=== PATIENT | female | born 1990 | race Caucasian/White ===

== ENCOUNTER 2018-01-23 08:34 | Emergency (ER) | payer BC ==
[~2018-01-23] VITALS: Ht 162.6 cm; Wt 63.2 kg
[~2018-01-23 08:34] MED LIST: MOBIC7.5 MG PO; MONONESSA1 EACH PO; NAPROXEN500 MG PO; PRENATAL VITAM1 EAC1 PO; SPRINTEC1 EACH PO; TORADOL10 MG PO; ZOFRAN4 MG PO
[2018-01-23 09:27] LABS: HEMATOCRIT 34.5 % (36.0-46.0); HEMOGLOBIN 12.3 G/DL (11.9-15.5); MCH 32.1 PG (29.0-34.0); MCHC 35.7 G/DL (30.0-36.0); MCV 90.1 FL (83-99); PLATELET COUNT 296 K/uL (156-360); RBC DIS.WIDTH-CV 11.9 % (11.8-14.6); RBC DIS.WIDTH-SD 39.1 % (39-53); RED BLOOD COUNT 3.83 M/uL (3.80-5.20); WHITE BLOOD COUNT 5.6 K/uL (4.1-10.2)
[2018-01-23 09:38] LABS: ALBUMIN 4.2 g/dL (3.2-4.8); CHLORIDE 105 mEq/L (99-109); POTASSIUM 4.3 mEq/L (3.7-5.4); SODIUM 136 mEq/L (136-147)
[2018-01-23 09:40] LABS: GLUCOSE 84 mg/dL (70-99); TOTAL PROTEIN 7.1 g/dL (6.4-8.3)
[2018-01-23 09:42] LABS: TOTAL BILIRUBIN 0.6 mg/dL (0.0-1.0)
[2018-01-23 09:44] LABS: ALKALINE PHOSPHATASE 48 IU/L (3-129); CREATININE 0.7 mg/dL (0.6-1.3); GFR ESTIMATE (CALCULATED) > 59 mL/min/
[2018-01-23 09:45] LABS: UREA NITROGEN (BUN) 8 mg/dL (9-23)
[2018-01-23 09:46] LABS: AST (GOT) 20 IU/L (2-34)
[2018-01-23 09:47] LABS: ALT (GPT) 10 IU/L (3-49); LIPASE 12 U/L (1.0-51.0)
[2018-01-23 09:50] LABS: APPEARANCE SL.HAZY ((CLEAR)); BILIRUBIN NEGATIVE; BLOOD NEGATIVE; COLOR YELLOW ((YELLOW)); GLUCOSE (STRIP) NEGATIVE; KETONES NEGATIVE; LEUKOCYTES SMALL; NITRITE NEGATIVE; PROTEIN (STRIP) NEGATIVE; SPECIFIC GRAVITY 1.025 (1.000-1.030)
[2018-01-23 09:56] LABS: BACTERIA 1+ /HPF; EPITHELIAL CELLS 2+ /HPF; MUCUS 1+ /LPF; RED BLOOD CELLS 0-5 /HPF (0-5); UCUL ADDED? YES
[2018-01-23] MEDS ORDERED: ZOFRAN4 MG PO (10:07)
[2018-01-23 10:23] VITALS: BP 121/80
== END 2018-01-23 10:24 | disposition home or self-care (01) ==
LOC: EME 08:34
PROVIDERS: Physician Assistant
DX: O21.9 Vomiting of pregnancy, unspecified (principal); Z3A.01 Less than 8 weeks gestation of pregnancy; Z88.1 Allergy status to other antibiotic agents
CPT/HCPCS: 80053; 81003; 83690; 85027; 87086; 99281; 99285; J2405; J7030

== ENCOUNTER 2018-03-08 20:29 | Emergency (ER) | payer BC ==
[~2018-03-08] VITALS: Ht 162.6 cm; Wt 64.2 kg
[~2018-03-08 20:29] MED LIST changes: +PRENATAL TABLE1 EAC3 PO
[2018-03-08 22:24] LABS: HEMATOCRIT 30.5 % (36.0-46.0); HEMOGLOBIN 11.1 G/DL (11.9-15.5); MCH 32.6 PG (29.0-34.0); MCHC 36.4 G/DL (30.0-36.0); MCV 89.4 FL (83-99); PLATELET COUNT 320 K/uL (156-360); RBC DIS.WIDTH-CV 11.9 % (11.8-14.6); RBC DIS.WIDTH-SD 38.3 % (39-53); RED BLOOD COUNT 3.41 M/uL (3.80-5.20)
[2018-03-08 22:32] LABS: ALBUMIN 3.7 g/dL (3.2-4.8); CHLORIDE 107 mEq/L (99-109); POTASSIUM 3.9 mEq/L (3.7-5.4); SODIUM 137 mEq/L (136-147)
[2018-03-08 22:35] LABS: GLUCOSE 88 mg/dL (70-99); TOTAL PROTEIN 6.4 g/dL (6.4-8.3)
[2018-03-08 22:37] LABS: TOTAL BILIRUBIN 0.3 mg/dL (0.0-1.0)
[2018-03-08 22:38] LABS: ALKALINE PHOSPHATASE 54 IU/L (3-129); CREATININE 0.6 mg/dL (0.6-1.3); GFR ESTIMATE (CALCULATED) > 59 mL/min/
[2018-03-08 22:39] LABS: UREA NITROGEN (BUN) 7 mg/dL (9-23)
[2018-03-08 22:40] LABS: AST (GOT) 14 IU/L (2-34)
[2018-03-08 22:41] LABS: ALT (GPT) 8 IU/L (3-49)
[2018-03-08 23:13] LABS: QUANTITATIVE HCG 33864.7 MIU/ML
[2018-03-08 23:18] LABS: APPEARANCE CLEAR ((CLEAR)); BILIRUBIN NEGATIVE; BLOOD NEGATIVE; COLOR YELLOW ((YELLOW)); GLUCOSE (STRIP) NEGATIVE; KETONES NEGATIVE; LEUKOCYTES NEGATIVE; NITRITE NEGATIVE; PROTEIN (STRIP) NEGATIVE; UCUL ADDED? NO; UROBILINOGEN 0.2 MG/DL (0.2-1.0)
[2018-03-09 00:28] VITALS: BP 122/74
== END 2018-03-09 00:29 | disposition home or self-care (01) ==
LOC: EME 20:29
PROVIDERS: Physician Assistant Medical
DX: O26.891 Other specified pregnancy related conditions, first trimester (principal); R10.30 Lower abdominal pain, unspecified; Z3A.13 13 weeks gestation of pregnancy; W10.9XXA Fall (on) (from) unspecified stairs and steps, initial encounter; Y93.89 Activity, other specified; Y92.038 Other place in apartment as the place of occurrence of the external cause; Z88.1 Allergy status to other antibiotic agents
CPT/HCPCS: 76801; 80053; 81003; 84702; 85027; 99281; 99283